=== PATIENT | female | born 1935 | race Caucasian/White ===

== ENCOUNTER 2017-12-20 22:22 | Inpatient (IN) | payer OTHER ==
[2017-12-20] MEDS: ONDANSETRON 4 MG INJ IV (01:05)
[2017-12-20 22:43] LABS: ADD MAN DIFF? NO
[2017-12-20 22:45] LABS: BASOPHIL # 0.1 10^3/ul (0.0-0.1); BASOPHILS % 0.5 % (0.0-2.0); EOSINOPHILS # 0.8 10^3/ul (0.0-0.5); EOSINOPHILS % 8.3 % (0.0-7.0); HEMATOCRIT 27.4 % (37.0-47.0); LYMPHOCYTES # 1.4 10^3/ul (0.8-2.9); LYMPHOCYTES % 15.2 % (15.0-51.0); MEAN CORPUSCULAR HEMOGLOBIN 30.2 pg (29.0-33.0); MEAN CORPUSCULAR HGB CONC 32.8 g/dl (32.0-37.0); MEAN CORPUSCULAR VOLUME 91.9 fl (82.0-101.0); MEAN PLATELET VOLUME 7.6 fl (7.4-10.4); MONOCYTE # 0.8 10^3/ul (0.3-0.9); NEUTROPHIL # 6.3 10^3/ul (1.6-7.5); NEUTROPHILS % 67.5 % (39.0-77.0); PLATELET COUNT 242 10^3/UL (140-415); RED BLOOD COUNT 2.98 10^6/ul (4.20-5.40); RED CELL DISTRIBUTION WIDTH 12.7 % (11.5-14.5)
[2017-12-20 22:45] LABS: WHITE BLOOD COUNT 9.4 10^3/ul (4.8-10.8)
[2017-12-20] MEDS: ASPIRIN 325 MG TAB PO (22:59)
[2017-12-20] MEDS: SOD CHLORIDE 0.9% 500 ML IV (23:00)
[2017-12-20 23:03] LABS: ANION GAP 9 (8-16); BLOOD UREA NITROGEN 13 mg/dl (7-20); CALCIUM 8.4 mg/dl (8.4-10.2); CARBON DIOXIDE 27 mmol/L (21-31); CHLORIDE 94 mmol/L (97-110); CREATININE 0.65 mg/dl (0.44-1.00); GLUCOSE 127 mg/dl (70-220); LIPASE 174 U/L (23-300); POTASSIUM 4.2 mmol/L (3.5-5.1); SODIUM 126 mmol/L (135-144)
[2017-12-20 23:18] LABS: B-TYPE NATRIURETIC PEPTIDE 1570 PG/ML (0-450); TROPONIN-I 0.057 ng/ml (0.000-0.120)
[2017-12-21] MEDS: SOD CHLORIDE 0.9% 1,000 ML IV ×3 (00:01→16:52)
[2017-12-21 00:08] LABS: ALANINE AMINOTRANSFERASE 18 IU/L (13-69); ALBUMIN 3.1 g/dl (3.3-4.9); ALKALINE PHOSPHATASE 86 IU/L (42-121); ASPARTATE AMINO TRANSFERASE 38 IU/L (15-46); BILIRUBIN,INDIRECT 0.1 mg/dl (0-1.1); BILIRUBIN,TOTAL 0.1 mg/dl (0.2-1.3)
[2017-12-21 01:03] LABS: URINE BLOOD (Dip) POC Trace-lysed (NEGATIVE); URINE GLUCOSE (Dip) POC Negative (NEGATIVE); URINE KETONES (Dip) POC Negative (NEGATIVE); URINE LEUKOCYTE EST (Dip) POC Negative (NEGATIVE); URINE NITRITE (Dip) POC Negative (NEGATIVE); URINE TOTAL PROTEIN POC Negative (NEGATIVE)
[2017-12-21 01:03] LABS: URINE PH (Dip) POC 5.5 (5.0-8.5)
[2017-12-21] MEDS: morphine 2 MG INJ IV (01:05)
[2017-12-21 01:39] LABS: ADD UMIC NO; UR ASCORBIC ACID NEGATIVE (NEGATIVE); UR BILIRUBIN (Dip) NEGATIVE (NEGATIVE); UR BLOOD (Dip) NEGATIVE (NEGATIVE); UR CLARITY CLEAR (CLEAR); UR COLOR STRAW (YELLOW); UR GLUCOSE (Dip) NEGATIVE (NEGATIVE); UR KETONES (Dip) NEGATIVE (NEGATIVE); UR LEUKOCYTE ESTERASE (Dip) NEGATIVE Leu/ul (NEGATIVE); UR NITRITE (Dip) NEGATIVE (NEGATIVE); UR SPECIFIC GRAVITY (Dip) 1.005 (1.003-1.030); UR TOTAL PROTEIN (Dip) NEGATIVE (NEGATIVE); UR UROBILINOGEN (Dip) NEGATIVE (NEGATIVE)
[2017-12-21 02:19] LABS: TROPONIN-I 0.068 ng/ml (0.000-0.120)
[2017-12-21 02:37] LABS: CARBAMAZEPINE (TEGRETOL) 5.1 ug/ml (8.0-12.0)
[2017-12-21 07:32] LABS: ADD MAN DIFF? NO
[2017-12-21 07:41] LABS: BASOPHILS % 0.4 % (0.0-2.0); EOSINOPHILS # 0.5 10^3/ul (0.0-0.5); HEMATOCRIT 27.3 % (37.0-47.0); HEMOGLOBIN 8.7 g/dl (12.0-16.0); LYMPHOCYTES # 1.4 10^3/ul (0.8-2.9); LYMPHOCYTES % 14.9 % (15.0-51.0); MEAN CORPUSCULAR HEMOGLOBIN 29.9 pg (29.0-33.0); MEAN CORPUSCULAR HGB CONC 31.9 g/dl (32.0-37.0); MEAN CORPUSCULAR VOLUME 93.8 fl (82.0-101.0); MEAN PLATELET VOLUME 7.8 fl (7.4-10.4); MONOCYTE # 0.6 10^3/ul (0.3-0.9); MONOCYTES % 6.9 % (0.0-11.0); NEUTROPHIL # 6.7 10^3/ul (1.6-7.5); NEUTROPHILS % 72.6 % (39.0-77.0); PLATELET COUNT 222 10^3/UL (140-415); RED BLOOD COUNT 2.91 10^6/ul (4.20-5.40); RED CELL DISTRIBUTION WIDTH 12.7 % (11.5-14.5)
[2017-12-21 07:41] LABS: WHITE BLOOD COUNT 9.3 10^3/ul (4.8-10.8)
[2017-12-21 08:27] LABS: CREATINE KINASE 34 IU/L (23-200)
[2017-12-21 08:28] LABS: ALANINE AMINOTRANSFERASE 23 IU/L (13-69); ALBUMIN 2.8 g/dl (3.3-4.9); ALKALINE PHOSPHATASE 80 IU/L (42-121); ANION GAP 10 (8-16); ASPARTATE AMINO TRANSFERASE 20 IU/L (15-46); BILIRUBIN,INDIRECT 0.1 mg/dl (0-1.1); BILIRUBIN,TOTAL 0.1 mg/dl (0.2-1.3); BLOOD UREA NITROGEN 8 mg/dl (7-20); CALCIUM 8.1 mg/dl (8.4-10.2); CARBON DIOXIDE 27 mmol/L (21-31); CHLORIDE 102 mmol/L (97-110); CHOL/HDL RATIO 2.2 RATIO; CHOLESTEROL 154 mg/dl (100-200); CREATININE 0.59 mg/dl (0.44-1.00); GLUCOSE 98 mg/dl (70-220); HDL CHOLESTEROL 67 mg/dl (33-92); LDL CHOLESTEROL,CALCULATED 73 mg/dl; PHOSPHORUS 3.8 mg/dl (2.5-4.9); POTASSIUM 4.8 mmol/L (3.5-5.1); SODIUM 134 mmol/L (135-144); TOTAL PROTEIN 5.6 g/dl (6.1-8.1); TRIGLYCERIDES 68 mg/dl (0-149)
[2017-12-21 08:36] LABS: CK INDEX 2.6; CK-MB 0.89 ng/ml (0.0-2.4); TROPONIN-I 0.057 ng/ml (0.000-0.120)
[2017-12-21 09:04] LABS: TROPONIN-I 0.061 ng/ml (0.000-0.120)
[2017-12-21 09:19] LABS: THYROID STIMULATING HORMONE 0.737 MIU/L (0.465-4.680)
[2017-12-21 10:17] LABS: HEMOGLOBIN A1C 5.8 % (0-5.9)
[2017-12-21 11:49] LABS: SODIUM,URINE RANDOM 41 mmol/L (30-90)
[2017-12-21 14:49] LABS: OSMOLALITY 268 mOsm/kg (280-295)
[2017-12-21 14:59] LABS: OSMOLALITY,URINE 143 mOsm/kg (250-1200)
[2017-12-21] MEDS ORDERED: PANTOPRAZOLE (EC) 40 MG TAB PO (15:00)
[2017-12-21 15:29] LABS: CREATINE KINASE 30 IU/L (23-200)
[2017-12-21] MEDS: CYANOCOBALAMIN 100 MCG TAB PO (15:31)
[2017-12-21] MEDS: FAMOTIDINE 20 MG TAB PO (15:31)
[2017-12-21] MEDS: CLOPIDOGREL 75 MG TAB PO (15:32)
[2017-12-21] MEDS: DOXAZOSIN 1 MG TAB PO (15:32)
[2017-12-21] MEDS: ASPIRIN (EC) 81 MG TAB PO (15:32)
[2017-12-21 15:40] LABS: CK INDEX 2.8; CK-MB 0.85 ng/ml (0.0-2.4); TROPONIN-I 0.058 ng/ml (0.000-0.120)
[2017-12-21] MEDS: CHOLECALCIFEROL 1,000 UNIT TAB PO (18:38)
[2017-12-21] MEDS: ATORVASTATIN 40 MG TAB PO (22:22)
[2017-12-22] MEDS: SOD CHLORIDE 0.9% 1,000 ML IV ×3 (01:30→13:41)
[2017-12-22 06:34] LABS: ADD MAN DIFF? NO
[2017-12-22 06:46] LABS: BASOPHILS % 0.5 % (0.0-2.0); EOSINOPHILS # 0.6 10^3/ul (0.0-0.5); EOSINOPHILS % 7.9 % (0.0-7.0); HEMATOCRIT 26.8 % (37.0-47.0); HEMOGLOBIN 8.8 g/dl (12.0-16.0); LYMPHOCYTES # 1.2 10^3/ul (0.8-2.9); LYMPHOCYTES % 14.9 % (15.0-51.0); MEAN CORPUSCULAR HEMOGLOBIN 30.8 pg (29.0-33.0); MEAN CORPUSCULAR HGB CONC 32.8 g/dl (32.0-37.0); MEAN CORPUSCULAR VOLUME 93.7 fl (82.0-101.0); MEAN PLATELET VOLUME 7.8 fl (7.4-10.4); MONOCYTE # 0.6 10^3/ul (0.3-0.9); MONOCYTES % 7.5 % (0.0-11.0); NEUTROPHIL # 5.4 10^3/ul (1.6-7.5); NEUTROPHILS % 68.8 % (39.0-77.0); PLATELET COUNT 212 10^3/UL (140-415); RED BLOOD COUNT 2.86 10^6/ul (4.20-5.40); RED CELL DISTRIBUTION WIDTH 12.7 % (11.5-14.5)
[2017-12-22 06:46] LABS: WHITE BLOOD COUNT 7.9 10^3/ul (4.8-10.8)
[2017-12-22 08:03] LABS: ANION GAP 9 (8-16); BLOOD UREA NITROGEN 5 mg/dl (7-20); CARBON DIOXIDE 26 mmol/L (21-31); CHLORIDE 105 mmol/L (97-110); CREATININE 0.56 mg/dl (0.44-1.00); GLUCOSE 93 mg/dl (70-220); POTASSIUM 4.2 mmol/L (3.5-5.1); SODIUM 136 mmol/L (135-144)
[2017-12-22 08:28] LABS: MAGNESIUM 1.9 mg/dl (1.7-2.5)
[2017-12-22 08:28] LABS: PHOSPHORUS 3.1 mg/dl (2.5-4.9)
[2017-12-22] MEDS: CYANOCOBALAMIN 100 MCG TAB PO (09:16)
[2017-12-22] MEDS: CLOPIDOGREL 75 MG TAB PO (09:17)
[2017-12-22] MEDS: CHOLECALCIFEROL 1,000 UNIT TAB PO ×3 (09:17→17:28)
[2017-12-22] MEDS: FAMOTIDINE 20 MG TAB PO (09:17)
[2017-12-22] MEDS: ASPIRIN (EC) 81 MG TAB PO ×2 (09:17→21:16)
[2017-12-22] MEDS: DOXAZOSIN 1 MG TAB PO (09:17)
[2017-12-22] MEDS: hydrALAzine 20 MG INJ IV (16:49)
[2017-12-22] MEDS: morphine 2 MG INJ IV (17:27)
[2017-12-22] MEDS ORDERED: ONDANSETRON 4 MG INJ (18:18)
[2017-12-22] MEDS: ONDANSETRON 4 MG INJ IV (18:20)
[2017-12-22] MEDS: ATORVASTATIN 40 MG TAB PO (21:16)
== END 2017-12-22 21:35 | disposition short-term general hospital (02) | DRG 65 ==
LOC: E/R 22:22 → MS4 12-21 02:49
DX: I63.9 Cerebral infarction, unspecified (principal); E87.1 Hypo-osmolality and hyponatremia; R07.9 Chest pain, unspecified; I25.10 Atherosclerotic heart disease of native coronary artery without angina pectoris; I10 Essential (primary) hypertension; D63.8 Anemia in other chronic diseases classified elsewhere; R10.13 Epigastric pain; S00.12XA Contusion of left eyelid and periocular area, initial encounter; W19.XXXA Unspecified fall, initial encounter; M19.90 Unspecified osteoarthritis, unspecified site; M50.320 Other cervical disc degeneration, mid-cervical region, unspecified level; Z96.641 Presence of right artificial hip joint; Z85.118 Personal history of other malignant neoplasm of bronchus and lung; Z95.5 Presence of coronary angioplasty implant and graft
CPT/HCPCS: 36415; 70450; 70551; 71045; 72050; 74019; 80048; 80053; 80061; 80076; 80156; 81003; 82550; 82553; 83036; 83690; 83735; 83880; 83930; 83935; 84100; 84300; 84443; 84484; 85025; 93005; 96374; 96375; 99285-25